=== PATIENT | male | born 1935 | race African-American/Black ===

== ENCOUNTER 2016-10-19 08:55 | Day surgery (SDC) | payer OTHER ==
[2016-10-18 17:19] VITALS: BMI 34.4
[~2016-10-19 08:55] MED LIST: ceFAZolin SODIUM 1 GM VIAL IVPB ONE
[2016-10-19 09:41] LABS: INR 1.15 (0.82-1.09); PROTHROMBIN TIME (PATIENT) 12.7 SEC (9.98-11.88)
[2016-10-19 09:44] LABS: ACTIVATED PTT 52.2 SECONDS (26.9-34.4)
--- NOTE | 2016-10-19 11:21 | HP ---
History & Physical Update - History History: No Change - Physical Physical: No Change - Assessment Assessment: No Change - Plan Plan: No Change
--- NOTE | 2016-10-19 11:23 | OP ---
Operative Note - Note: Operative Date: 10/19/16 Pre-Operative Diagnosis: prostate cancer Operation: prostate cryoablation, cystoscopy Findings: heterogeneous prostate Post-Operative Diagnosis: Same as Pre-op Surgeon: Dax Rascon Anesthesiologist/INSTRUMENT INSPECTOR: Juhi Ayoub Anesthesia: General Estimated Blood Loss (mls): 0 Drains & Tubes with Location: 18 fr duong Operative Report Dictated: Yes
[2016-10-19] MEDS ORDERED: ROCURONIUM BROMIDE 50 MG/5 ML VIAL ONE ×2 (12:05→12:17)
[2016-10-19] MEDS ORDERED: ceFAZolin SODIUM 1 GM VIAL IVPB ONE (12:15)
[2016-10-19] MEDS ORDERED: PROPOFOL 20 ML ONE ×2 (12:27→12:28)
[2016-10-19] MEDS ORDERED: NEOSTIGMINE METHYLSULFATE 0.5 MG/1 ML - 10 ML MDV ONE (12:29)
[2016-10-19] MEDS ORDERED: ONDANSETRON 4 MG/2 ML VIAL IVPUSH PRN (13:48)
[2016-10-19] MEDS ORDERED: LACTATED RINGERS SOLUTION 1,000 ML IV SCH (14:00)
[2016-10-19 14:39] VITALS: TEMP 97
[2016-10-19 17:01] VITALS: BP 134/84; PULSE 68
--- NOTE | 2016-10-20 07:07 | OP ---
DATE OF OPERATION: 10/19/2016 PREOPERATIVE DIAGNOSIS: Prostate cancer. POSTOPERATIVE DIAGNOSIS: Prostate cancer. PROCEDURE: Prostate cryoablation and cystoscopy. SURGEON: Dax Davies MD SOFTWARE ENGINEER MOBILE: None. ANESTHESIA: General via endotracheal tube. ANESTHESIOLOGIST: Juhi Ayoub MD SPECIMENS: None. CULTURES: None. DRAINS: An 18-Danish Cardoza catheter. ESTIMATED BLOOD LOSS: Negligible. COMPLICATIONS: None. PROCEDURE: Patient was brought in the operating room and placed on the operating table in the supine position. After administration of intravenous antibiotics, general anesthesia was administered via endotracheal tube. The patient was placed in the dorsal lithotomy position. The perineum, genitals, and lower abdomen were prepped and draped in the usual sterile manner. The transrectal ultrasound probe was now inserted into the rectum and transrectal ultrasound of the prostate was done. Measurements for volume were done and a plan was established for the cryoablation. An 18-Danish Cardoza catheter had been placed per urethra and the bladder was filled with approximately 250 mL of sterile normal saline and clamped. Once the plan was established using 4 cryo probes, the 4 cryo probes were inserted at their specified location per the plan. Now, a Denonvilliers fascia temperature sensor was inserted as was the external sphincter temperature sensor. After the cryo probes were placed, measurements were taken to determine the length and these were set on all 4 cryo probes. Now, the Cardoza catheter was removed. Cystoscopy was performed, demonstrated normal anterior urethra, prostatic urethra, demonstrated no puncture of the prostatic urethra. The bladder was entered and thoroughly inspected. There were no foreign bodies, tumors, stones, or inflammation. Both urethral orifices were in the usual location with clear efflux bilaterally. The flexible cystoscope was retroflexed upon itself and the bladder neck was inspected and there was no perforation or puncture of the bladder with cryo probes. Now, the cryoablation was done with all 4 probes in 2 freeze-thaw cycles. At the end of the procedure, the cryoprobes and temperature sensors were removed and the urethra warmer was left in place for an additional 5 minutes. Urethral warmer had been inserted after the cystoscopy over a wire. Now, a sterile compressive dressing was applied and the 18-Danish Cardoza catheter was replaced, placing gravity drainage. He tolerated the procedure well. Transferred to the recovery room in stable condition. DAX DAVIES M.D. [id number]
== END 2016-10-19 16:00 | disposition home or self-care (01) ==
LOC: JASU-SURG 08:55
PROVIDERS: ATTEND Urology
PROC: 0V503ZZ Destruction of Prostate, Percutaneous Approach (ICD-10-PCS; 2016-10-19)
PROC: 0VT08ZZ Resection of Prostate, Via Natural or Artificial Opening Endoscopic (ICD-10-PCS; principal; 2016-10-19 12:00)
PROC: 0TJB8ZZ Inspection of Bladder, Via Natural or Artificial Opening Endoscopic (ICD-10-PCS; 2016-10-19 12:00)
DX: C61 Malignant neoplasm of prostate (principal)
CPT/HCPCS: 55873; C2618; 36415; 85610; 85730; 94760